=== PATIENT | female | born 1990 | race Caucasian/White ===

== ENCOUNTER 2016-09-02 12:08 | Emergency (ER) | payer OTHER ==
--- NOTE | 2016-09-02 15:03 | ED NURSING NOTES ---
Clinical Report - Nurses [facility] [place] [address] 09/02/2016 12:11 Patient: TRI TOM TRIAGE Triage time 12:37. Acuity: LEVEL 3. Chief Complaint: VAGINAL BLEED and ABDOMINAL PAIN and LOW BACK PAIN (hx of back pain). Alert. No acute distress. LEON COMA SCORE: [place] Coma Scale: 15- eyes open spontaneously (4); best verbal response- oriented x 4 (5); best motor response- obeys commands (6). --12:44 Trisha May R.N. 12:37 09/02/16. BP: 117/85. HR: 71. RR: 18. O2 saturation: 96%. Temp: 98.4 F. Pain level now: 08/28. --12:44 Trisha May R.N. Weight: 84.8 kg stated. Height/Length: 63 inches Per Patient. BMI: 33.1. --12:43 Trisha May R.N. Medications None. --12:39 Trisha May R.N. Medication/allergy information source: the patient. --12:44 Trisha May R.N. Allergies No Known Drug Allergy. --12:40 Trisha May R.N. History Arrived by private vehicle. Historian: patient. Accompanied by family. Primary physician ([facility]). This started last night. ( used 5 pads during the night.). She has had abdominal pain (stabbing pain). The pain is described as located in the LLQ. Last oral intake by patient was last night. Treatment SCREENING TECH: None. PAST MEDICAL HX: Immunizations: status is unknown. Last normal menstrual period was 1 week ago- 08/19- 08/24 perod, stopped then started again today. SOCIAL HX: Smoker- current status unknown. Occasional alcohol use. History of drug use: marijuana. Recently used drugs days ago. FALL RISK ASSESSMENT: Fall risk assessment completed. No fall risk identified. NUTRITIONAL RISK ASSESSMENT: The nutritional risk assessment revealed no deficiencies. FUNCTIONAL ASSESSMENT: Functional assessment: no impairments noted. LEARNING NEEDS ASSESSMENT: The learning needs assessment revealed no barriers. SKIN INTEGRITY ASSESSMENT: Skin integrity risk assessment completed. No skin integrity risk identified. --12:44 Trisha May R.N. PROBLEMS: Overian cyst . Seizure. --12:41 Trisha May R.N. ADDITIONAL SURGERIES: Appendectomy. --12:41 Trisha May R.N. Interventions ID band on patient. To room. --12:44 Trisha May R.N. PHYSICAL ASSESSMENT Ambulatory to room. Patient gowned. GENERAL / NEURO / PSYCH: Alert. Oriented X 4. Appears in pain and anxious. HEENT: Mucous membranes are pink. RESPIRATORY: Respirations not labored. CVS: Capillary refill less than 2 seconds. GI / : Abdominal tenderness in the left lower quadrant. SKIN: Skin is warm and dry. --12:46 Trisha May R.N. NURSING PROGRESS NOTES Patient gowned. Head of bed elevated. Two patient identifiers checked. Call light placed in reach. Side rails up x 2. Bed placed in lowest position. Brakes of bed on. Patient ready for evaluation. --12:46 Trisha May R.N. 12:48 09/02/16. Patient ID band checked for patient name and birthdate: patient confirmed urine collected; sample sent to lab for urinalysis. Specimen labeled in the presence of the patient. --12:48 Liza Mckinney R.N. 12:49 09/02/16. Urine test negative. --12:49 Liza Mckinney R.N. 12:59 09/02/2016 Site #1 started via IV in the right forearm with an 20g angiocath. Saline lock flushed with 10 mL saline. --13:04 Liza Mckinney R.N. 13:11 09/02/2016 Started bag #1 1000 mL IV Fluids IV NS (Saline); bolus of 1000 mL wide open via site #1. Allergies verified and confirmed 5 rights. IV patency established. IV site checked: no pain, redness, or swelling. IV flushed thoroughly pre- and post-medication administration. --13:11 Liza Mckinney R.N. 13:10. ( lab at bedside for blood draw). --13:19 Liza Mckinney R.N. 13:12. ( Dr Kaiser at bedside). --13:20 Liza Mckinney R.N. 13:15 09/02/2016 Started bag #1 1000 mL IV Fluids IV NS (Saline); bolus of 1000 mL wide open via site #1. Allergies verified and confirmed 5 rights. IV patency established. IV site checked: no pain, redness, or swelling. IV flushed thoroughly pre- and post-medication administration. --15:39 Liza Mckinney R.N. 13:37 09/02/16. Patient and family informed about reason for wait and about plan of care. Patient waiting for lab results. ( pt reports discomfort at IV site. Site is clean, dry and intact with no redness, change in temperature or swelling. IV NS infusing.). --13:37 Liza Mckinney R.N. 13:59 09/02/16. Patient informed about reason for wait and about plan of care. --13:59 Liza Mckinney R.N. <<STRICKEN ENTRY-- 14:41 09/02/16. BP: 122/82. HR: 73. RR: 14. O2 saturation: 100% on room air. Temp: 98.1 F (oral). Pain level now: 0/10. --14:41 Costa Gusman R.N. --END STRIKE>> Change to Details. --15:30 Liza Mckinney R.N. 14:41 09/02/16. BP: 122/82. HR: 73. RR: 14. O2 saturation: 100% on room air. Temp: 98.1 F (oral). Pain level now: 0/10. --14:41 Costa Gusman R.N. <<STRICKEN ENTRY-- 14:41 09/02/16. BP: 122/82. HR: 73. RR: 14. O2 saturation: 100% on room air. Temp: 98.1 F (oral). --14:41 Costa Gusman R.N. --END STRIKE>> Change to Details. --15:30 Liza Mckinney R.N. 14:17 09/02/2016 IV Fluids IV NS Discontinued: bag #1 infused. Total amount infused: 1000 mL. IV patency established. IV site checked: no pain, redness, or swelling. IV flushed thoroughly. --14:42 Costa Gusman R.N. 14:20 09/02/16. ( US at bedside). --14:20 Costa Gusman R.N. 14:23 09/02/16. ( US in room). --14:23 Liza Mckinney R.N. 14:41 09/02/16. ( US completed). --14:41 Costa Gusman R.N. 14:41 09/02/16. Cardiac rhythm: normal sinus rhythm. --14:41 Costa Gusman R.N. 14:42 09/02/16. implementation lead, pulse oximeter and NIBP monitor placed on patient; monitor alarms on. --14:42 Costa Gusman R.N. 14:42 09/02/16. Patient and family informed about reason for wait and about plan of care. --14:42 Costa Gusman R.N. 14:59 09/02/16. PELVIC EXAM: Pelvic exam performed by ED physician. Assisted by one nurse (this RN). Preparation: pelvic tray and culture medium; patient placed in lithotomy position. Procedure: speculum and bimanual exam. Light amount of vaginal bleeding noted. Specimens collected and sent to lab: GC, chlamydia, wet prep and GUANACO prep. Status post-procedure: she was stable and no complications were noted. Total time of assist / procedure: 15 minutes. --14:59 Liza Mckinney R.N. DISPOSITION / DISCHARGE 14:41 09/02/16. BP: 122/82. HR: 73. RR: 14. O2 saturation: 100% on room air. Temp: 98.1 F (oral). Pain level now: 0/10. --15:28 Liza Mckinney R.N. <<STRICKEN ENTRY-- 14:41 09/02/16. BP: 122/82. HR: 73. RR: 14. O2 saturation: 100% on room air. Temp: 98.1 F (oral). Pain level now: 0/10. --15:28 Liza Mckinney R.N. --END STRIKE>> Change to Details. --15:30 Liza Mckinney R.N. <<STRICKEN ENTRY-- 14:41 09/02/16. BP: 122/82. HR: 73. RR: 14. O2 saturation: 100% on room air. Temp: 98.1 F (oral). --15:28 Liza Mckinney R.N. --END STRIKE>> Change to Details. --15:30 Liza Mckinney R.N. 15:23 09/02/2016 Site #1 removed upon discharge. Manual pressure and bandaid applied. --15:28 Liza Mckinney R.N. 15:28 09/02/16. No learning barriers present. Discharge instructions provided and reviewed with the patient and parent. Reviewed referrals. Patient and parent verbalized understanding. Written instructions provided in [place]. The patient was discharged by the physician. She was discharged home and accompanied by parent. She left the Emergency Department ambulatory and via private vehicle. --15:28 Liza Mckinney R.N. Locked/Released at 09/02/2016 15:40 by Liza Mckinney R.N.
--- NOTE | 2016-09-02 15:03 | ED ORDER SUMMARY ---
..... Patient: TRI TOM OrderSheet Located Within [facility] VisitID: [id number] [address] [place] [address] 25y, F Registration Date/Time: 09/02/2016 ORDER SHEET Weight: 84.8 kg (stated) Allergies: No Known Drug Allergy GENERAL ORDERS: Pushcart Peddler (Continuous) (dizzy) (12:46 09/02/2016 David Antonio) (Ack 13:05 RMarsden R.N.) (13:11 RMarsden R.N.) EKG - ER Stat (12:46 09/02/2016 David Antonio) (12:47 David Antonio) (Cancelled: wrong input12:47 David Antonio) CBC w Diff Urgent (12:46 09/02/2016 David Antonio) (Ack 12:48 Vinay) (13:28 Marium R.N.) CMP Urgent (12:46 09/02/2016 David Antonio) (Ack 12:48 Vinay) (13:28 JBjoy R.N.) PT with INR Urgent (12:46 09/02/2016 David Antonio) (Ack 12:48 Vinay) (13:28 JBjoy R.N.) PTT Urgent (12:46 09/02/2016 David Antonio) (Ack 12:48 Vinay) (13:28 Marium R.N.) UA-Culture if indicated Urgent (12:46 09/02/2016 David Antonio) (Ack 12:48 Vinay) (13:28 Marium R.N.) Serum Quantitative Urgent (12:46 09/02/2016 David Antonio) (Ack 12:48 Vinay) (13:28 Marium R.N.) Pulse oximeter (12:46 09/02/2016 David Antonio) (Ack 13:05 RMarsden R.N.) (13:11 RMarsden R.N.) Type & Screen Urgent (12:50 09/02/2016 David Antonio) (Ack 12:52 Vinay) (13:28 Marium R.N.) US Pelvic Complete w Transvag Urgent (13:25 09/02/2016 David Antonio) (Ack 13:26 Vinay) (14:20 Marium R.N.) Wet Prep (Vaginal) (darkl blood) Urgent (14:54 09/02/2016 David Antonio) (14:56 oerdoreen) GC/Chlamydia (Cervix) (dark blood) Urgent (14:54 09/02/2016 David Antonio) (14:56 LAURAoekasia) MEDICATION ORDERS: IV FLUIDS: IV NS : initial bolus 1000 mL (1000 mL/hr), then none - for X1 (NOW) (12:46 09/02/2016 David Antonio) (Ack 13:05 RMarsfabiana R.N.) (15:39 Denise R.N.) ORDER SHEET NOTES: [Electronically signed by Liza Mckinney R.N. (15:40 09/02/2016)] [Electronically signed by Spencer Kaiser Dr. (17:07 09/06/2016)] [Electronically locked/signed by Liza Mckinney R.N. (15:40 09/02/2016)]
--- NOTE | 2016-09-02 15:03 | ED ORDER SUMMARY ---
..... Patient: TRI TOM OrderSheet [facility] VisitID: [id number] [address] [place] [address] 25y, F Registration Date/Time: 09/02/2016 ORDER SHEET Weight: 84.8 kg (stated) Allergies: No Known Drug Allergy GENERAL ORDERS: Ccnp (Continuous) (dizzy) (12:46 09/02/2016 David Antonio) (Ack 13:05 RMarsden R.N.) (13:11 RMarsden R.N.) EKG - ER Stat (12:46 09/02/2016 David Antonio) (12:47 David Antonio) (Cancelled: wrong input12:47 David Antonio) CBC w Diff Urgent (12:46 09/02/2016 David Antonio) (Ack 12:48 Vinay) (13:28 Marium R.N.) CMP Urgent (12:46 09/02/2016 David Antonio) (Ack 12:48 Vinay) (13:28 JBjoy R.N.) PT with INR Urgent (12:46 09/02/2016 David Antonio) (Ack 12:48 Vinay) (13:28 JBjoy R.N.) PTT Urgent (12:46 09/02/2016 David Antonio) (Ack 12:48 Vinay) (13:28 Marium R.N.) UA-Culture if indicated Urgent (12:46 09/02/2016 David Antonio) (Ack 12:48 Vinay) (13:28 Marium R.N.) Serum Quantitative Urgent (12:46 09/02/2016 David Antonio) (Ack 12:48 Vinay) (13:28 Marium R.N.) Pulse oximeter (12:46 09/02/2016 David Antonio) (Ack 13:05 RMarsden R.N.) (13:11 RMarsden R.N.) Type & Screen Urgent (12:50 09/02/2016 David Antonio) (Ack 12:52 Vinay) (13:28 Marium R.N.) US Pelvic Complete w Transvag Urgent (13:25 09/02/2016 David Antonio) (Ack 13:26 Vinay) (14:20 Marium R.N.) Wet Prep (Vaginal) (darkl blood) Urgent (14:54 09/02/2016 David Antonio) (14:56 oerdoreen) GC/Chlamydia (Cervix) (dark blood) Urgent (14:54 09/02/2016 David Antonio) (14:56 LAURAoekasia) MEDICATION ORDERS: IV FLUIDS: IV NS : initial bolus 1000 mL (1000 mL/hr), then none - for X1 (NOW) (12:46 09/02/2016 David Antonio) (Ack 13:05 RMarsfabiana R.N.) (15:39 Denise R.N.) ORDER SHEET NOTES: [Electronically signed by Liza Mckinney R.N. (15:40 09/02/2016)] [Electronically signed by Spencer Kaiser Dr. (17:07 09/06/2016)] [Electronically locked/signed by Liza Mckinney R.N. (15:40 09/02/2016)]
--- NOTE | 2016-09-02 15:03 | ED NURSING NOTES ---
Clinical Report - Nurses [facility] [place] [address] 09/02/2016 12:11 Patient: TRI TOM TRIAGE Triage time 12:37. Acuity: LEVEL 3. Chief Complaint: VAGINAL BLEED and ABDOMINAL PAIN and LOW BACK PAIN (hx of back pain). Alert. No acute distress. LEON COMA SCORE: [place] Coma Scale: 15- eyes open spontaneously (4); best verbal response- oriented x 4 (5); best motor response- obeys commands (6). --12:44 Trisha May R.N. 12:37 09/02/16. BP: 117/85. HR: 71. RR: 18. O2 saturation: 96%. Temp: 98.4 F. Pain level now: 08/28. --12:44 Trisha May R.N. Weight: 84.8 kg stated. Height/Length: 63 inches Per Patient. BMI: 33.1. --12:43 Trisha May R.N. Medications None. --12:39 Trisha May R.N. Medication/allergy information source: the patient. --12:44 Trisha May R.N. Allergies No Known Drug Allergy. --12:40 Trisha May R.N. History Arrived by private vehicle. Historian: patient. Accompanied by family. Primary physician ([facility]). This started last night. ( used 5 pads during the night.). She has had abdominal pain (stabbing pain). The pain is described as located in the LLQ. Last oral intake by patient was last night. Treatment BURR SANDER: None. PAST MEDICAL HX: Immunizations: status is unknown. Last normal menstrual period was 1 week ago- 08/19- 08/24 perod, stopped then started again today. SOCIAL HX: Smoker- current status unknown. Occasional alcohol use. History of drug use: marijuana. Recently used drugs days ago. FALL RISK ASSESSMENT: Fall risk assessment completed. No fall risk identified. NUTRITIONAL RISK ASSESSMENT: The nutritional risk assessment revealed no deficiencies. FUNCTIONAL ASSESSMENT: Functional assessment: no impairments noted. LEARNING NEEDS ASSESSMENT: The learning needs assessment revealed no barriers. SKIN INTEGRITY ASSESSMENT: Skin integrity risk assessment completed. No skin integrity risk identified. --12:44 Trisha May R.N. PROBLEMS: Overian cyst . Seizure. --12:41 Trisha May R.N. ADDITIONAL SURGERIES: Appendectomy. --12:41 Trisha May R.N. Interventions ID band on patient. To room. --12:44 Trisha May R.N. PHYSICAL ASSESSMENT Ambulatory to room. Patient gowned. GENERAL / NEURO / PSYCH: Alert. Oriented X 4. Appears in pain and anxious. HEENT: Mucous membranes are pink. RESPIRATORY: Respirations not labored. CVS: Capillary refill less than 2 seconds. GI / : Abdominal tenderness in the left lower quadrant. SKIN: Skin is warm and dry. --12:46 Trisha May R.N. NURSING PROGRESS NOTES Patient gowned. Head of bed elevated. Two patient identifiers checked. Call light placed in reach. Side rails up x 2. Bed placed in lowest position. Brakes of bed on. Patient ready for evaluation. --12:46 Trisha May R.N. 12:48 09/02/16. Patient ID band checked for patient name and birthdate: patient confirmed urine collected; sample sent to lab for urinalysis. Specimen labeled in the presence of the patient. --12:48 Liza Mckinney R.N. 12:49 09/02/16. Urine test negative. --12:49 Liza Mckinney R.N. 12:59 09/02/2016 Site #1 started via IV in the right forearm with an 20g angiocath. Saline lock flushed with 10 mL saline. --13:04 Liza Mckinney R.N. 13:11 09/02/2016 Started bag #1 1000 mL IV Fluids IV NS (Saline); bolus of 1000 mL wide open via site #1. Allergies verified and confirmed 5 rights. IV patency established. IV site checked: no pain, redness, or swelling. IV flushed thoroughly pre- and post-medication administration. --13:11 Liza Mckinney R.N. 13:10. ( lab at bedside for blood draw). --13:19 Liza Mckinney R.N. 13:12. ( Dr Kaiser at bedside). --13:20 Liza Mckinney R.N. 13:15 09/02/2016 Started bag #1 1000 mL IV Fluids IV NS (Saline); bolus of 1000 mL wide open via site #1. Allergies verified and confirmed 5 rights. IV patency established. IV site checked: no pain, redness, or swelling. IV flushed thoroughly pre- and post-medication administration. --15:39 Liza Mckinney R.N. 13:37 09/02/16. Patient and family informed about reason for wait and about plan of care. Patient waiting for lab results. ( pt reports discomfort at IV site. Site is clean, dry and intact with no redness, change in temperature or swelling. IV NS infusing.). --13:37 Liza Mckinney R.N. 13:59 09/02/16. Patient informed about reason for wait and about plan of care. --13:59 Liza Mckinney R.N. <<STRICKEN ENTRY-- 14:41 09/02/16. BP: 122/82. HR: 73. RR: 14. O2 saturation: 100% on room air. Temp: 98.1 F (oral). Pain level now: 0/10. --14:41 Costa Gusman R.N. --END STRIKE>> Change to Details. --15:30 Liza Mckinney R.N. 14:41 09/02/16. BP: 122/82. HR: 73. RR: 14. O2 saturation: 100% on room air. Temp: 98.1 F (oral). Pain level now: 0/10. --14:41 Costa Gusman R.N. <<STRICKEN ENTRY-- 14:41 09/02/16. BP: 122/82. HR: 73. RR: 14. O2 saturation: 100% on room air. Temp: 98.1 F (oral). --14:41 Costa Gusman R.N. --END STRIKE>> Change to Details. --15:30 Liza Mckinney R.N. 14:17 09/02/2016 IV Fluids IV NS Discontinued: bag #1 infused. Total amount infused: 1000 mL. IV patency established. IV site checked: no pain, redness, or swelling. IV flushed thoroughly. --14:42 Costa Gusman R.N. 14:20 09/02/16. ( US at bedside). --14:20 Costa Gusman R.N. 14:23 09/02/16. ( US in room). --14:23 Liza Mckinney R.N. 14:41 09/02/16. ( US completed). --14:41 Costa Gusman R.N. 14:41 09/02/16. Cardiac rhythm: normal sinus rhythm. --14:41 Costa Gusman R.N. 14:42 09/02/16. monitoring analyst, pulse oximeter and NIBP monitor placed on patient; monitor alarms on. --14:42 Costa Gusman R.N. 14:42 09/02/16. Patient and family informed about reason for wait and about plan of care. --14:42 Costa Gusman R.N. 14:59 09/02/16. PELVIC EXAM: Pelvic exam performed by ED physician. Assisted by one nurse (this RN). Preparation: pelvic tray and culture medium; patient placed in lithotomy position. Procedure: speculum and bimanual exam. Light amount of vaginal bleeding noted. Specimens collected and sent to lab: GC, chlamydia, wet prep and GUANACO prep. Status post-procedure: she was stable and no complications were noted. Total time of assist / procedure: 15 minutes. --14:59 Liza Mckinney R.N. DISPOSITION / DISCHARGE 14:41 09/02/16. BP: 122/82. HR: 73. RR: 14. O2 saturation: 100% on room air. Temp: 98.1 F (oral). Pain level now: 0/10. --15:28 Liza Mckinney R.N. <<STRICKEN ENTRY-- 14:41 09/02/16. BP: 122/82. HR: 73. RR: 14. O2 saturation: 100% on room air. Temp: 98.1 F (oral). Pain level now: 0/10. --15:28 Liza Mckinney R.N. --END STRIKE>> Change to Details. --15:30 Liza Mckinney R.N. <<STRICKEN ENTRY-- 14:41 09/02/16. BP: 122/82. HR: 73. RR: 14. O2 saturation: 100% on room air. Temp: 98.1 F (oral). --15:28 Liza Mckinney R.N. --END STRIKE>> Change to Details. --15:30 Liza Mckinney R.N. 15:23 09/02/2016 Site #1 removed upon discharge. Manual pressure and bandaid applied. --15:28 Liza Mckinney R.N. 15:28 09/02/16. No learning barriers present. Discharge instructions provided and reviewed with the patient and parent. Reviewed referrals. Patient and parent verbalized understanding. Written instructions provided in [place]. The patient was discharged by the physician. She was discharged home and accompanied by parent. She left the Emergency Department ambulatory and via private vehicle. --15:28 Liza Mckinney R.N. Locked/Released at 09/02/2016 15:40 by Liza Mckinney R.N.
--- NOTE | 2016-09-02 15:03 | ED CLINICAL REPORT ---
Clinical Report - Physicians/Mid Levels [facility] [address] [place] [address] 09/02/2016 12:11 Patient: TRI TOM Time Seen: 1235. Arrived- By private vehicle. Historian- patient (mother). HISTORY OF PRESENT ILLNESS Chief Complaint: VAGINAL BLEEDING. This started yesterday and still present but is improving. It was abrupt in onset and has been constant but is not gone now. Modifying factors- (relieved by nothing). Not worsened by anything. The patient has had pelvic pain and abnormal bleeding. Not sexually active. control measures utilized (just got done with the depo shot). (went through 5 pads yesterday. has gone through 3 today.). Similar symptoms previously: None. Recent medical care: Not recently seen/assessed. REVIEW OF SYSTEMS No fever, chills or skin rash. All systems otherwise negative, except as recorded above. PAST HISTORY See nurses notes. SOCIAL HISTORY Never smoker. No alcohol use or drug use. No recent travel. Is a local resident. FAMILY HISTORY (no family history of bleeding problems.). ADDITIONAL NOTES The nursing notes have been reviewed. PHYSICAL EXAM Vital Signs: 09/02/2016 12:37 BP: 117/85. HR: 71. RR: 18. O2 saturation: 96%. Temp: 98.4 F. Pain level now: 3/10. Blood pressure normal. Oxygen saturation normal. Appearance: Alert. Oriented X3. No acute distress. HEENT: Normal external inspection. Eyes: No pale conjunctivae. ENT: Pharynx normal. Neck: Neck supple. CVS: Heart sounds normal. Respiratory: No respiratory distress. Breath sounds normal. Chest nontender. Abdomen: Soft and nontender. Bowel sounds normal. No organomegaly. No mass. : (exam performed with nursing environmental maintenance worker Liaz at all times. Exam was significant for a Small amount of dark red blood in the vaginal vault. No active bleeding. No masses. Cervical os is closed. No adnexal tenderness or masses. Normal external female genitalia. Normal vaginal mucosa noted.). Skin: Skin warm and dry. Normal skin color. No rash. Normal skin turgor. Extremities: Extremities nontender. No lower extremity edema. LABS, X-RAYS, AND EKG EKG: No acute process. No acute ischemia. Normal EKG. Normal sinus rhythm. Rate: 67. Normal P waves. Normal SPENCER. Normal QRS complex. Normal axis. Normal ST and T waves, QT and QTc. The study has been interpreted contemporaneously. The study has been independently viewed by me. The EKG appears to be a good tracing. Pelvic Sonogram: PROCEDURE: US COMPLETE PELVIC W/TRANSVAG INDICATION: ABNORMAL BLEEDING TECHNIQUE: Transabdominal and endovaginal irwin scale and color Doppler sonographic images of the female pelvis were obtained. COMPARISON: None. FINDINGS: TRANSABDOMINAL SCANS: Anteverted uterus measures 5.7 cm in length. Normal contour and echotexture. Normal adnexa without suspicious mass. The visible portion of the urinary bladder is normal. No significant free pelvic fluid. TRANSVAGINAL SCANS: The uterus is anteverted in position and has a small amount of simple appearing fluid in the cervix. No suspicious vascularity. Normal, homogeneous myometrial echotexture. The uterus measures 7.8 x 3.7 x 2.8 cm. The endometrium is 4.4 mm in thickness. No endometrial fluid collections or suspicious masses. The right ovary measures 2.5 x 1.7 x 2.2 cm and has a normal follicular echotexture. There is normal arterial and venous ovarian flow present. The left ovary measures 2.4 x 1.4 x 1.5 cm and also has a normal follicular echotexture and normal vascularity. No suspicious adnexal masses or free pelvic fluid. IMPRESSION: 1. Small amount of simple fluid in the cervix, but no suspicious cervical lower uterine mass or evidence of hemorrhage. 2. Otherwise normal pelvic ultrasound. Laboratory Tests: UA-Culture if indicated: (LANETTE: 09/02/2016 12:30) ( MsgRcvd 09/02/2016 14:04) Final results Test Result Flag Units (Reference) URINE COLOR YELLOW URINE APPEARANCE CLEAR URINE GLUCOSE NEGATIVE (NEGATIVE) URINE BILIRUBIN NEGATIVE (NEGATIVE) URINE KETONE NEGATIVE (NEGATIVE) URINE SPECIFIC GRAVITY >= 1.030 (1.010-1.030) URINE PH 5.5 (5.0-8.0) URINE PROTEIN NEGATIVE (NEGATIVE) URINE UROBILINOGEN 0.2 EU/dL (0.2-1.0) URINE NITRITE NEGATIVE (NEGATIVE) URINE BLOOD 3+ (NEGATIVE) URINE LEUK ESTERASE NEGATIVE (NEGATIVE) URINE RBC 3-5 rbc/hpf (0-1) URINE WBC 0-1 wbc/hpf (0-1) URINE EPITHELIAL CELLS 3-5 EPI/hpf (0-5) URINE BACTERIA FEW (1+) (NONE SEEN) URINE COMMENT CULT NOT INDICATED 1+ MUCOUSURINE CULTURES ARE SET-UP BASED ON THE FOLLOWING CRITERIA:POSITIVE NITRITEPOSITIVE LEUKOCYTE ESTERASEGREATER THAN 10 WHITE BLOOD CELLSMODERATE (2+) OR GREATER BACTERIA CBC w Diff: (LANETTE: 09/02/2016 13:15) ( MsgRcvd 09/02/2016 13:23) Final results Test Result Flag Units (Reference) WHITE BLOOD COUNT 5.8 K/uL (4.5-11.5) RED BLOOD COUNT 4.43 M/uL (4.00-5.20) HEMOGLOBIN 12.5 gm/dL (12.0-16.0) HEMATOCRIT 37.6 % (36.0-46.0) MEAN CELL VOLUME 85 fL (80-100) MEAN CORPUSCULAR HGB 28 pg (26-34) MEAN CORPUSCULAR HGB CONC 33 g/dL (31-37) RED CELL DISTRIBUTION WIDTH 13.0 % (11.6-14.8) PLATELET COUNT 243 K/uL (150-400) NEUTROPHIL % 65.8 % (50-75) LYMPH % 24.3 L % (25-40) MONO % 7.5 % (3-14) EOSINOPHIL % 1.2 % (0-4) BASOPHIL % 1.2 % (0-2) PT with INR: (LANETTE: 09/02/2016 13:15) ( MsgRcvd 09/02/2016 13:44) Final results Test Result Flag Units (Reference) INR 1.0 (0.8-1.2) Low Intensity Therapy: INR 1.5-2.0 PT range 18.5-23.1Mod.Intensity Therapy: INR 2.0-3.0 PT range 23.1-31.5High Intensity Therapy: INR 2.5-3.5 PT range 27.4-35.5High Intensity Therapy 2: INR 3.0-4.0 PT range 31.5-39.3 APTT 33 SECONDS (24-34) CMP: (LANETTE: 09/02/2016 13:15) ( MsgRcvd 09/02/2016 13:52) Final results Test Result Flag Units (Reference) GLUCOSE 94 mg/dL (70-110) BUN 11 mg/dL (7-18) CREATININE 0.7 mg/dL (0.6-1.3) Estimated GFR >60 mL/min Estimated GFR- >60 mL/min Note: Persistent reduction over 3 months in eGFR<60 mL/min/1.73 m2 defines CKD. Patients with eGFR values>=60 mL/min/1.73 m2 may also have CKD if evidence ofpersistent proteinuria. Additional information may be foundat [email or web address].org. SODIUM 142 mmol/L (136-145) POTASSIUM 4.2 mmol/L (3.5-5.1) CHLORIDE 105 mmol/L (98-107) CARBON DIOXIDE 26 mmol/L (21-32) CALCIUM 8.8 mg/dL (8.5-10.1) TOTAL PROTEIN 7.2 g/dL (6.4-8.2) ALBUMIN 3.4 g/dL (3.3-5.0) BILIRUBIN, TOTAL 0.5 mg/dL (0.0-1.0) ALKALINE PHOSPHATASE 61 U/L (46-116) AST (SGOT) 19 U/L (15-37) ALT (SGPT) 41 U/L (12-78) BETA HCG, QUANTITATIVE <1 mIU/mL REFERENCE RANGE:Adult Males: <2 mIU/mLNon- Females: <6 mIU/mL Females:Approximate Approximate hCGGestational Age Range (mIU/mL) 0-1 week 0-501-2 weeks 40-3002-3 weeks 100-50610-4 weeks 500-77349-0 months 5,000-200,0002-3 months 10,000-100,0002nd trimester 3,000-50,0003rd trimester 1,000-50,000 Type & Screen: (LANETTE: 09/02/2016 13:15) ( MsgRcvd 09/02/2016 14:04) Final results Test Result Flag Units (Reference) PATIENT BLOOD TYPE O Positive ANTIBODY SCREEN NEGATIVE . PROGRESS AND PROCEDURES Course of Care: the patient is a pleasant 25-year-old female presenting for evaluation of abnormal vaginal bleeding. At this time differential diagnosis includes ectopic , tubo-ovarian abscess, torsion, or menorrhagia secondary tobirth control cessation. The latter appears to be the working diagnosis at this time given patient's cessation ofbirth control. Patient is agreeable to the treatment and plan. Laboratory studies will be ordered. Patient does not have any signs of hemodynamic instability as her blood pressure and heart rate are noted to be normal. Blood work will be drawnin case the patient starts to have any decompensation. The patient's blood work is noted to be unremarkable. Hemoglobin and hematocrit are noted to be within normal limits. EKG also does not show any signs of conduction abnormality. Patient has had no shortness of breath. Patient will also be evaluated with the [facility] syncope rule. Patient is noted to be negative on the [facility] syncope role. Pelvic ultrasound is also noted to be unremarkable. Please see findings above. Bleeding has significantly improved while here in the emergency department per patient. Patient does not have any significant active bleeding. Patient is stable outpatient candidate and appears to be reliable. Had long discussion with patient in regards to treatment for the vaginal bleeding. Because the patient had significant improvement with these symptoms while here in the emergency department, waited the risks and benefits of starting patient on control pills. At this time patient would like to have conservative management with expectant monitoring and waiting. prior to patient's departure from the emergency department she was noted to be resting in bed and in no acute distress. No signs of any hemodynamic instability since she she has been here in the hospital and upon discharge. Patient's is stable outpatient candidate. Do not feel patient needs to be admitted to the hospital or have further emergency department workup/evaluation. Disposition: Discharged. Condition: good. CLINICAL IMPRESSION 09/02/2016 14:41 BP: 122/82. HR: 73. RR: 14. O2 saturation: 100%. Temp: 98.1 F. Blood pressure normal. Oxygen saturation normal. Dysfunctional uterine bleeding- menorrhagia (acute). INSTRUCTIONS Warnings: GENERAL WARNINGS: Return or contact your physician immediately if your condition worsens or changes unexpectedly, if not improving as expected, or if other problems arise. Specifically return if pain, vomiting, bleeding, breathing difficulty or fever. weakness, light headed, or other concerns. Your Current Medications: CONTINUE TAKING THE FOLLOWING MEDICATIONS: None*. OTC Medications: Motrin (available over the counter): take according to label instructions. Follow-up: Return to the emergency department as needed. Follow up with your doctor in three days. Reason for referral: recheck today's concerns. Screening today revealed the patient's blood pressure to be in the normal range. The patient should follow up with a primary care provider for blood pressure management. Understanding of the discharge instructions verbalized by patient. (Electronically signed by Spencer Kaiser Dr. 09/06/2016 17:07)
--- NOTE | 2016-09-02 15:56 | DIAGNOSTIC IMAGING REPORT ---
PROCEDURE: US COMPLETE PELVIC W/TRANSVAG INDICATION: ABNORMAL BLEEDING TECHNIQUE: Transabdominal and endovaginal irwin scale and color Doppler sonographic images of the female pelvis were obtained. COMPARISON: None. FINDINGS: TRANSABDOMINAL SCANS: Anteverted uterus measures 5.7 cm in length. Normal contour and echotexture. Normal adnexa without suspicious mass. The visible portion of the urinary bladder is normal. No significant free pelvic fluid. TRANSVAGINAL SCANS: The uterus is anteverted in position and has a small amount of simple appearing fluid in the cervix. No suspicious vascularity. Normal, homogeneous myometrial echotexture. The uterus measures 7.8 x 3.7 x 2.8 cm. The endometrium is 4.4 mm in thickness. No endometrial fluid collections or suspicious masses. The right ovary measures 2.5 x 1.7 x 2.2 cm and has a normal follicular echotexture. There is normal arterial and venous ovarian flow present. The left ovary measures 2.4 x 1.4 x 1.5 cm and also has a normal follicular echotexture and normal vascularity. No suspicious adnexal masses or free pelvic fluid. IMPRESSION: 1. Small amount of simple fluid in the cervix, but no suspicious cervical lower uterine mass or evidence of hemorrhage. 2. Otherwise normal pelvic ultrasound.
--- NOTE | 2016-09-06 17:07 | ED MED RECONCILIATION SUMMARY ---
Patient: TRI TOM Medication Reconciliation Report [facility] VisitID: [id number] [address] [place] [address] 25y, F Registration Date/Time: 09/02/2016 Weight: 84.8 kg Height/Length: 63 in. BMI: 33.1 ALLERGIES: No Known Drug Allergy The patient's Home Medications are listed below: NONE. The source(s) of the original Home Medication information: patient The following Medications were given to the patient in the Emergency Department: IV NS IV Fluids bolus 1000 mL wide open, administered: 09/02/2016 1:11:00 PM IV NS IV Fluids bolus 1000 mL wide open, administered: 09/02/2016 1:15:00 PM The following Medications were prescribed to the patient: Motrin (available over the counter): take according to label instructions. -- Spencer Kaiser Dr.
--- NOTE | 2016-09-06 17:07 | ED MED RECONCILIATION SUMMARY ---
Patient: TRI TOM Medication Reconciliation Report [facility] VisitID: [id number] [address] [place] [address] 25y, F Registration Date/Time: 09/02/2016 Weight: 84.8 kg Height/Length: 63 in. BMI: 33.1 ALLERGIES: No Known Drug Allergy The patient's Home Medications are listed below: NONE. The source(s) of the original Home Medication information: patient The following Medications were given to the patient in the Emergency Department: IV NS IV Fluids bolus 1000 mL wide open, administered: 09/02/2016 1:11:00 PM IV NS IV Fluids bolus 1000 mL wide open, administered: 09/02/2016 1:15:00 PM The following Medications were prescribed to the patient: Motrin (available over the counter): take according to label instructions. -- Spencer Kaiser Dr.
--- NOTE | 2016-09-06 17:07 | ED DISCHARGE INSTRUCTIONS ---
Patient: TRI TOM General Instructions [facility] VisitID: [id number] [address] [place] [address] 25y, F Registration Date/Time: 09/02/2016 09/02/2016 14:41 BP: 122/82. HR: 73. RR: 14. O2 saturation: 100%. Temp: 98.1 F. Blood pressure normal. Oxygen saturation normal. Dysfunctional uterine bleeding- menorrhagia (acute). INSTRUCTIONS Warnings: GENERAL WARNINGS: Return or contact your physician immediately if your condition worsens or changes unexpectedly, if not improving as expected, or if other problems arise. Specifically return if pain, vomiting, bleeding, breathing difficulty or fever. weakness, light headed, or other concerns. Your Current Medications: CONTINUE TAKING THE FOLLOWING MEDICATIONS: None*. OTC Medications: Motrin (available over the counter): take according to label instructions. Follow-up: Return to the emergency department as needed. Follow up with your doctor in three days. Reason for referral: recheck today's concerns. Screening today revealed the patient's blood pressure to be in the normal range. The patient should follow up with a primary care provider for blood pressure management. Understanding of the discharge instructions verbalized by patient. ADDITIONAL INFORMATION Irregular Vaginal Bleeding This is a condition in which bleeding occurs at unexpected times of the month. The bleeding may be heavier or criminal defense attorney than usual. Heavy bleeding may lead to anemia. If severe enough, anemia may cause you to look pale and feel weak or fatigued. You might have shortness of breath even with little exertion. The female hormones produced in your body every month may be out of balance. This imbalance leads to bleeding. Causes could include an ovarian cyst, emotional stress, pelvic infection. Failure to ovulate during your last cycle may also cause this problem. Home Care: If bleeding is heavy, rest and avoid heavy exertion. You may use acetaminophen (Tylenol) or ibuprofen (Motrin, Advil) to control pain, unless another pain medicine was prescribed. [NOTE: If you have chronic liver or kidney disease or ever had a stomach ulcer or GI bleeding, talk with your doctor before using these medicines.] Iron supplements may be prescribed for anemia. It takes about 4-6 weeks for the iron to correct the anemia. Take the medicine as directed. See your doctor for a repeat blood test after you finish the iron treatment. If hormones were prescribed to control your bleeding, take them exactly as directed. If you were prescribed a medicine called Provera (medroxyprogesterone), the bleeding should stop while you are taking it. Another period will start a few days after you finish the medicine. Follow Up with your doctor, or as advised, within the next 1-2 days if heavy bleeding continues. Otherwise, follow up within the next 1-2 weeks. Get Prompt Medical Attention if any of the following occur: Bleeding becomes heavy (soaking one pad an hour for three hours) Fever of 100.4F (38C) or higher, or as directed by your healthcare provider Increase in abdominal pain Weakness, dizziness or fainting You have been given the following additional information: Dysfunctional Uterine Bleeding (Electronically signed by Spencer Kaiser Dr. 09/06/2016 17:07)
--- NOTE | 2016-09-06 17:07 | ED DISCHARGE INSTRUCTIONS ---
Patient: TRI TOM General Instructions [facility] VisitID: [id number] [address] [place] [address] 25y, F Registration Date/Time: 09/02/2016 09/02/2016 14:41 BP: 122/82. HR: 73. RR: 14. O2 saturation: 100%. Temp: 98.1 F. Blood pressure normal. Oxygen saturation normal. Dysfunctional uterine bleeding- menorrhagia (acute). INSTRUCTIONS Warnings: GENERAL WARNINGS: Return or contact your physician immediately if your condition worsens or changes unexpectedly, if not improving as expected, or if other problems arise. Specifically return if pain, vomiting, bleeding, breathing difficulty or fever. weakness, light headed, or other concerns. Your Current Medications: CONTINUE TAKING THE FOLLOWING MEDICATIONS: None*. OTC Medications: Motrin (available over the counter): take according to label instructions. Follow-up: Return to the emergency department as needed. Follow up with your doctor in three days. Reason for referral: recheck today's concerns. Screening today revealed the patient's blood pressure to be in the normal range. The patient should follow up with a primary care provider for blood pressure management. Understanding of the discharge instructions verbalized by patient. ADDITIONAL INFORMATION Irregular Vaginal Bleeding This is a condition in which bleeding occurs at unexpected times of the month. The bleeding may be heavier or performance improvement director than usual. Heavy bleeding may lead to anemia. If severe enough, anemia may cause you to look pale and feel weak or fatigued. You might have shortness of breath even with little exertion. The female hormones produced in your body every month may be out of balance. This imbalance leads to bleeding. Causes could include an ovarian cyst, emotional stress, pelvic infection. Failure to ovulate during your last cycle may also cause this problem. Home Care: If bleeding is heavy, rest and avoid heavy exertion. You may use acetaminophen (Tylenol) or ibuprofen (Motrin, Advil) to control pain, unless another pain medicine was prescribed. [NOTE: If you have chronic liver or kidney disease or ever had a stomach ulcer or GI bleeding, talk with your doctor before using these medicines.] Iron supplements may be prescribed for anemia. It takes about 4-6 weeks for the iron to correct the anemia. Take the medicine as directed. See your doctor for a repeat blood test after you finish the iron treatment. If hormones were prescribed to control your bleeding, take them exactly as directed. If you were prescribed a medicine called Provera (medroxyprogesterone), the bleeding should stop while you are taking it. Another period will start a few days after you finish the medicine. Follow Up with your doctor, or as advised, within the next 1-2 days if heavy bleeding continues. Otherwise, follow up within the next 1-2 weeks. Get Prompt Medical Attention if any of the following occur: Bleeding becomes heavy (soaking one pad an hour for three hours) Fever of 100.4F (38C) or higher, or as directed by your healthcare provider Increase in abdominal pain Weakness, dizziness or fainting You have been given the following additional information: Dysfunctional Uterine Bleeding (Electronically signed by Spencer Kaiser Dr. 09/06/2016 17:07)
--- NOTE | 2016-09-06 17:07 | ED MAR SUMMARY ---
..... Medication Administration Record Merged With [facility] [address] [place] [address] Patient: TRI TOM Visit ID: [id number] 25y, F Weight: 84.8 kg Height/Length: 63 in BMI: 33.1 ALLERGIES: No Known Drug Allergy Start 13:11 09/02/2016 Liza Mckinney RAnastasia, Stop 14:17 09/02/2016 Costa Gusman R.N. Medication Administered: IV NS (SALINE), Dose: IV Fluids, Bolus: 1000 mL wide open, Dispensed: 1000 mL bag, Site: #1 right forearm. Medication Ordered: IV NS : initial bolus 1000 mL (1000 mL/hr), then none - for X1 (NOW). Start 13:15 09/02/2016 Liza Mckinney RJerNJer Medication Administered: IV NS (SALINE), Dose: IV Fluids, Bolus: 1000 mL wide open, Dispensed: 1000 mL bag, Site: #1 right forearm. Medication Ordered: IV NS : initial bolus 1000 mL (1000 mL/hr), then none - for X1 (NOW).
--- NOTE | 2016-09-06 17:07 | ED MAR SUMMARY ---
..... Medication Administration Record [facility] [address] [place] [address] Patient: TRI TOM Visit ID: [id number] 25y, F Weight: 84.8 kg Height/Length: 63 in BMI: 33.1 ALLERGIES: No Known Drug Allergy Start 13:11 09/02/2016 Liza Mckinney RAnastasia, Stop 14:17 09/02/2016 Costa Gusman R.N. Medication Administered: IV NS (SALINE), Dose: IV Fluids, Bolus: 1000 mL wide open, Dispensed: 1000 mL bag, Site: #1 right forearm. Medication Ordered: IV NS : initial bolus 1000 mL (1000 mL/hr), then none - for X1 (NOW). Start 13:15 09/02/2016 Liza Mckinney RJerNJer Medication Administered: IV NS (SALINE), Dose: IV Fluids, Bolus: 1000 mL wide open, Dispensed: 1000 mL bag, Site: #1 right forearm. Medication Ordered: IV NS : initial bolus 1000 mL (1000 mL/hr), then none - for X1 (NOW).
== END 2016-09-02 15:28 | disposition home or self-care (01) ==
LOC: ED SRH 12:08
DX: N92.0 Excessive and frequent menstruation with regular cycle (principal)
CPT/HCPCS: 90001; 90004; 90074; 90100; 90155; 90195; 90197; 91004; 91227; 91228; 94001; 94060; 95059